=== PATIENT | female | born 1955 | race Caucasian/White ===

== ENCOUNTER 2017-10-14 21:58 | Emergency (ER) | payer OTHER, MEDICARE ==
[~2017-10-14] VITALS: Ht 167.6 cm; Wt 75.8 kg
[~2017-10-14 21:58] MED LIST: ACE500 PO; ARIP30TA10 PO; CALC-734 PO; CLON-303 PO; DEXL30CA5 PO; DICL100T54 PO; DIPH-740 PO; DOC100 PO; DUL30 PO; ERY250 PO; FISH OIL1 CAP PO; GABA-549 PO; IBU200 PO; IRO150 PO; MELA5TAB11 PO; MINE120C6 TP; MULT-912 PO; NAPR220C12 PO; NORT50CA40 PO; OMEP-153 PO; OXYGENHOME INH; PANT40TA65 PO; PER PO; POLY17PO25 PO; PRED20TA6 PO; PROL80 PO; PSYP PO; RANI150C17 PO; Septra DS PO; TRAM-420 PO; VITA-198 PO; VITA100C; ZOLM2.5 PO; [UNRECOGNIZED DRUG - CODE] PO
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
[2017-10-14] MEDS ORDERED: GINK120C PO (22:10)
[2017-10-14 22:42] LABS: PLATELET COUNT, AUTOMATED 325 K/uL (150-450)
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
[2017-10-14 23:52] VITALS: BP 160/116
== END 2017-10-14 23:55 ==
LOC: ER 22:18
DX: F43.29 Adjustment disorder with other symptoms (principal)
CPT/HCPCS: 36415; 80305; 80320; 80329; 81001; 81025; 82040; 82247; 82310; 82374; 82435; 82565; 82947; 83735; 84075; 84132; 84155; 84295; 84443; 84450; 84460; 84520; 85025; 99285

== ENCOUNTER 2017-10-14 23:21 | Inpatient (IN) | payer OTHER, MEDICARE ==
[~2017-10-14] VITALS: Ht 163.8 cm; Wt 74.8 kg
[~2017-10-14 23:21] MED LIST changes: +GINK120C PO
[2017-10-15] MEDS ORDERED: diphenhydrAMINE 25 MG CAP PO PRN (00:20)
[2017-10-15] MEDS ORDERED: MAG HYD/AL HYD/SIMETH 30ML UDC PO PRN (00:20)
[2017-10-15 00:53] VITALS: BP 156/106
[2017-10-15 06:10] VITALS: BP 151/118
[2017-10-15] MEDS ORDERED: PROPRANOLOL HCL LA 80 MG CAPCR PO PRN (07:10)
[2017-10-15] MEDS: LOPERAMIDE HCL 2 MG CAP PO PRN ×2 (07:47→13:35)
[2017-10-15 08:45] VITALS: BP 148/96
--- NOTE | 2017-10-15 09:11 | EKG ---
FACILITY: [facility] [place] PATIENT NAME: FELIBERTO ALVARNEGA : [id number] MR: [id number] V: [id number] EXAM DATE: ORDERING PHYSICIAN: SOURAV YANCEY TECHNOLOGIST: TERESA Martin Reason : TACHY Blood Pressure : / mmHG Vent. Rate : 098 BPM Atrial Rate : 098 BPM P-R Int : 136 ms QRS Dur : 090 ms QT Int : 382 ms P-R-T Axes : 054 037 061 degrees QTc Int : 487 ms Normal sinus rhythm Poor R wave progression Abnormal ECG No previous ECGs available Confirmed by TRICIA VENTURA ([id number]) on 10/15/2017 3:32:13 PM Referred By: CARLOS Confirmed By:TRICIA VENTURA
[2017-10-15] MEDS ORDERED: traMADol 50 MG TAB PO PRN (12:50)
[2017-10-15 12:55] VITALS: BP 132/88
[2017-10-15] MEDS: DULoxetine HCL 30 MG CAPCR PO SCH (13:34)
[2017-10-15] MEDS: GABAPENTIN 300 MG CAP PO SCH ×2 (13:34→20:29)
[2017-10-15 20:22] VITALS: BP 134/84
[2017-10-15] MEDS: NORTRIPTYLINE HCL 25 MG CAP PO SCH (20:29)
[2017-10-15] MEDS: MELATONIN 3 MG TAB PO SCH (20:29)
[2017-10-15] MEDS: DICLOFENAC SOD 75 MG TABCR PO SCH (20:29)
[2017-10-15] MEDS: PANTOPRAZOLE SOD 40 MG TABEC PO SCH (20:30)
[2017-10-15] MEDS: RANITIDINE HCL 150 MG TAB PO SCH (20:30)
[2017-10-15] MEDS: clonazePAM 1 MG TAB PO SCH (20:30)
[2017-10-15] MEDS ORDERED: clonazePAM 0.5 MG TAB PO SCH (21:00)
[2017-10-16 06:30] VITALS: BP 120/74
[2017-10-16] MEDS: ACETAMINOPHEN 325 MG TAB PO PRN (06:41)
[2017-10-16] MEDS: GABAPENTIN 300 MG CAP PO SCH ×3 (08:46→20:45)
[2017-10-16] MEDS: PANTOPRAZOLE SOD 40 MG TABEC PO SCH ×2 (08:46→20:45)
[2017-10-16] MEDS: VITAMIN E 400 INTLU CAP PO SCH (08:46)
[2017-10-16] MEDS: MULTIVITAMINS TAB PO SCH (08:46)
[2017-10-16] MEDS: DULoxetine HCL 30 MG CAPCR PO SCH ×2 (08:46→12:21)
[2017-10-16] MEDS: DICLOFENAC SOD 75 MG TABCR PO SCH ×2 (09:00→20:44)
--- NOTE | 2017-10-16 10:01 | EKG ---
FACILITY: [facility] [place] PATIENT NAME: FELIBERTO ALVARENGA : [id number] MR: [id number] V: [id number] EXAM DATE: ORDERING PHYSICIAN: SOURAV YANCEY TECHNOLOGIST: TERESA Martin Reason : AMBNORMAL EKG Blood Pressure : / mmHG Vent. Rate : 060 BPM Atrial Rate : 060 BPM P-R Int : 146 ms QRS Dur : 090 ms QT Int : 420 ms P-R-T Axes : 027 038 054 degrees QTc Int : 420 ms Sinus rhythm Decreased R wave progression anteriorly Confirmed by FAWAD NINO ([id number]) on 10/16/2017 6:30:38 PM Referred By: NAYE Confirmed By:FAWAD NINO
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
[2017-10-16 12:40] VITALS: BP 118/77
[2017-10-16 19:29] VITALS: BP 132/82
[2017-10-16] MEDS: MELATONIN 3 MG TAB PO SCH (20:44)
[2017-10-16] MEDS: clonazePAM 1 MG TAB PO SCH (20:44)
[2017-10-16] MEDS: NORTRIPTYLINE HCL 25 MG CAP PO SCH (20:44)
[2017-10-16] MEDS: RANITIDINE HCL 150 MG TAB PO SCH (20:45)
[2017-10-17 06:30] VITALS: BP 112/79
[2017-10-17] MEDS: VITAMIN E 400 INTLU CAP PO SCH (07:44)
[2017-10-17] MEDS: ACETAMINOPHEN 325 MG TAB PO PRN (07:44)
[2017-10-17] MEDS: DULoxetine HCL 30 MG CAPCR PO SCH (07:44)
[2017-10-17] MEDS: PANTOPRAZOLE SOD 40 MG TABEC PO SCH (07:44)
[2017-10-17] MEDS: GABAPENTIN 300 MG CAP PO SCH (07:44)
[2017-10-17] MEDS: MULTIVITAMINS TAB PO SCH (07:44)
[2017-10-17] MEDS: DICLOFENAC SOD 75 MG TABCR PO SCH (07:44)
--- NOTE | 2017-10-18 18:18 | DISCHARGE SUMMARY ---
This patient was seen on morning of September 16, 2017 at approximately 0930 hours. FINAL DIAGNOSES PER DSM-V Adjustment disorder with depressed and anxious mood. Partner relational problem. Generalized anxiety disorder. Borderline personality disorder per history. Patient known to have an overall supportive relationship with her of many years. REASON FOR ADMISSION Please see H and P for full details. This is a 62-year-old female who lives with her here in the [facility]. Patient reported having an argument , ongoing social stressors with . Patient reportedly making a motion with firearm and indicated threatening behaviors toward herself and her . Patient was emergency detained. No police hold was put in place. Patient came to the unit without incident. Patient took a very active role in her treatment, quickly resolving their differences. Patient and patient's known to meet together on the unit on multiple occasions and did very well throughout her say, again taking a very active role in her treatment. Suicidal ideations resolved, homicidal ideations resolved. Patient's had no reservations about her discharge. Firearms were removed from the home, and patient discharged to home and emergency detainment was dropped. PHYSICAL EXAMINATION: GENERAL: Please see emergency room note. Notable for a 62-year-old female in no acute medical distress. VITAL SIGNS: At the time of admission temperature 99.1, pulse 113, respiratory rate 20, blood pressure 174/104, pulse oximetry 90 on room air. Vital signs at the time of discharge, temperature 98.7, pulse 96, respiratory rate 16, blood pressure 112/79 and pulse oximetry 100 on nasal cannula 3L oxygen that patient wears at night. LABORATORY DATA Vitamin D 25-hydroxy was noted to be low at 28. TSH 4.50, in normal range. CBC upon admission noted to be white blood cells slightly low at 4.0, otherwise unremarkable. Chemistry panel overall unremarkable as well. Urinalysis unremarkable. screen negative. Toxicology screen positive for cannabinoids and tricyclics. Serum alcohol level of 16 upon admission. Cannabis screen likely a false positive, patient on proton pump inhibitors. MENTAL STATUS EXAMINATION AT THE TIME OF DISCHARGE GENERAL APPEARANCE, BEHAVIOR AND ATTITUDE: This is a cooperative, pleasant 62- year-old female, interacting well with this provider and other treatment team staff. Patient making good eye contact. No bizarre mannerisms or tics. No psychomotor agitation or retardation. No periods of tearfulness. SPEECH: Within normal limits, regular rate, rhythm volume and tone. MOOD: Improved. AFFECT: Full and bright. Mood congruent overall. THOUGHT PROCESSES: Appear goal directed, logical. No loose associations or flight of ideas. THOUGHT CONTENT: Free of auditory or visual hallucinations, ideas of reference , thought broadcastings, delusions, obsessions, compulsions. Patient adamantly denying any further suicidal or homicidal ideation. SENSORIUM: Clear. COGNITION: Alert and oriented to person, place, time and situation. MEMORY: Immediate, recent and remote estimated intact. INTELLIGENCE: Average based on interview. INSIGHT AND JUDGMENT: Considered grossly intact and appropriate for ongoing outpatient care in the absence of alcohol or drug use. RESULTS OF TESTING IMAGING: None. LABORATORY DATA: See above. CONSULTATIONS: None. TREATMENT Patient received medications, participated in individual and group therapy. HOSPITAL COURSE Patient took a very active role in her treatment. Patient's Klonopin was reduced at night. Patient on many medications. Medication education was given. Patient's mood quickly improved. CONDITION OF PATIENT ON DISCHARGE Stable. Considered minimal risk to himself or others and appropriate for outpatient care. DISPOSITION Patient discharged to home in the care of her . Patient would follow up with outpatient medication management and therapy for mental health. Recommended couples counseling as well, patient and agreed. Crisis line was given should symptoms return. Patient was instructed not to drink or take illicit substances on current medication regimen. MEDICATIONS 1. Patient would reduce Klonopin dose as was done on the unit. 2. Patient would remain on ginkgo biloba over the counter. 3. Multivitamin with minerals over the counter 4. Melatonin 10 mg over the counter. 5. Pamelor 50 at bedtime. 6. Patient would remain on nocturnal nasal cannula oxygen at 3L at bedtime. 7. Pantoprazole 40 mg twice daily. 8. Propanolol 80 mg p.r.n. for anxiety. 9. Ranitidine 150 mg every evening. 10. Patient was able to abstain from the need of tramadol on the unit, and patient would continue to abstain from tramadol at home. 11. Patient would take 1000 international units of vitamin E over the counter. 12. Patient instructed to take vitamin D3 1000 international units as well. 13. Zomig 5 mg as needed p.r.n. for headache. 14. Patient would reduce again Klonopin to 1 mg p.o. at bedtime only. 15. Patient would remain on Cymbalta 60 mg at breakfast and lunch. 16. Neurontin 300 mg at breakfast and lunch. 17. Nurontin 600 mg at bedtime. 18. Patient could take Voltaren 75 mg twice daily as well. Patient agreed again to abstain from alcohol and any other illicit substance, and take medication as prescribed. Risks, benefits and alternatives of the above discharge plan were discussed. Informed consent was given to proceed with above discharge plan by this competent patient, and patient's present at the time of discharge. BRIANA
== END 2017-10-17 11:07 | disposition home or self-care (01) | DRG 883 ==
LOC: BHS 23:21
PROVIDERS: ADMIT Nurse Practitioner Psychiatric/Mental Health; ATTEND Nurse Practitioner Psychiatric/Mental Health
DX: F60.3 Borderline personality disorder (principal); R45.851 Suicidal ideations; F43.23 Adjustment disorder with mixed anxiety and depressed mood; F41.1 Generalized anxiety disorder; K21.9 Gastro-esophageal reflux disease without esophagitis; G47.33 Obstructive sleep apnea (adult) (pediatric); Y90.0 Blood alcohol level of less than 20 mg/100 ml; Z63.0 Problems in relationship with spouse or partner; Z99.81 Dependence on supplemental oxygen; Z91.5 Personal history of self-harm; Z81.1 Family history of alcohol abuse and dependence; Z90.710 Acquired absence of both cervix and uterus
CPT/HCPCS: 82306; 93005; Q0163

== ENCOUNTER → 2018-08-31 | Outpatient (CLI) | payer MEDICARE, OTHER ==
[~2018-08-31] MED LIST changes: +5-HY50CA4 PO; +BUSP15TA69 PO; +DOCU-416 PO; +OMEG-36 PO; +PROP160C20 PO; +ST.300CA17 PO; +TAUR100P MC; +THEA25PO MC; +TRYP500C2 PO; +VALE530C2 PO; +VITA-175 PO; +VITA1TAB7; +[UNRECOGNIZED DRUG - OTHER]; +[UNRECOGNIZED DRUG - OTHER]; +[UNRECOGNIZED DRUG - OTHER]
--- NOTE | 2018-09-01 09:58 | RADIOLOGY IMAGING REPORT ---
FACILITY: [facility] [place] PATIENT NAME: FELIBERTO ALVARENGA : [id number] MR: [id number] V: [id number] EXAM DATE: ORDERING PHYSICIAN: JIN COOPER TECHNOLOGIST: Marialuisa Lal PROCEDURE:BILATERAL DIGITAL SCREENING MAMMOGRAM WITH CAD ASSISTED INTERPRETATION & 3D TOMOSYNTHESIS COMPARISON:Prior mammograms 08/05/17, 12/04/15, 11/21/14, 11/15/13. INDICATIONS:SCREENING FINDINGS: The breasts are heterogeneously dense which can obscure small masses. The parenchymal pattern has remained stable allowing for difference in mammographic technique & patient positioning. DIAGNOSTIC CATEGORY 1--NEGATIVE. RECOMMENDATIONS: ROUTINE MAMMOGRAM AND CLINICAL EVALUATION. IMPRESSION: BIRADS 1: Negative. No significant abnormality is seen. Dictated by: Mildred Rueda M.D. on 08/31/2018 at 16:51 Transcribed by: ALEXEY on 09/01/2018 at 9:00 Approved by: Mildred Rueda M.D. on 09/01/2018 at 9:57 [facility]
== END ==
LOC: MAMO 00:26
PROVIDERS: ATTEND Physician Assistant
DX: Z12.31 Encounter for screening mammogram for malignant neoplasm of breast (principal)
CPT/HCPCS: 77063; 77067